=== PATIENT | male | born 1945 | race Caucasian/White ===

== ENCOUNTER 2020-08-25 18:13 | Emergency (ER) | payer OTHER ==
[~2020-08-25] VITALS: Ht 177.8 cm; Wt 80.7 kg
[2020-08-25 18:17] VITALS: Ht 177.8 cm; Wt 80.7 kg
[2020-08-25] MEDS ORDERED: VISINE TEARS15 ML OP (19:28)
[2020-08-25 19:54] VITALS: BP 214/105
== END 2020-08-25 19:40 | disposition home or self-care (01) ==
LOC: ED 18:13
DX: H10.213 Acute toxic conjunctivitis, bilateral (principal); E11.9 Type 2 diabetes mellitus without complications
CPT/HCPCS: J7040; V2632